=== PATIENT | female | born 1985 | race Caucasian/White ===

== ENCOUNTER 2022-09-27 19:17 | Outpatient (CLI) | payer OTHER, SELFPAY ==
[2022-09-30 03:23] LABS: DHEAS 90 ug/dL (61-337)
[2022-10-02 16:44] LABS: Sex Hormone Binding Globulin 60 nmol/L (25-122); Testosterone, LC-MS/MS 9 ng/dL (9-55)
== END 2022-09-27 19:18 | disposition home or self-care (01) ==
PROVIDERS: Visit Provider Physician Assistant
DX: Z01.419 Encounter for gynecological examination (general) (routine) without abnormal findings (principal); L68.0 Hirsutism
CPT/HCPCS: 82627; 84270; 84402; 84403; 84443; 87086

== ENCOUNTER 2022-10-20 09:28 | Outpatient (CLI) | payer OTHER, SELFPAY ==
[2022-10-20 14:01] LABS: Albumin* 4.7 g/dL (3.3-5.0)
[2022-10-20 14:02] LABS: Chloride* 104 mmol/L (96-114); Potassium* 4.8 mmol/L (3.6-5.1); Sodium* 139 mmol/L (135-149)
[2022-10-20 14:04] LABS: Aspartate Amino Transferase* 27 U/L (12-35); Bilirubin Total* 0.4 mg/dL (0.1-1.5); Carbon Dioxide* 26 mmol/L (20-32); Creatinine* 0.6 mg/dL (0.5-1.5); Estimated Glomerular Filt Rate 118 ml/min
[2022-10-20 14:05] LABS: Alanine Aminotransferase* 20 U/L (4-35); Alkaline Phosphatase* 60 U/L (40-150); Blood Urea Nitrogen* 14 mg/dL (5-24); Calcium* 9.7 mg/dL (8.4-10.6); Glucose* 98 mg/dL (60-115); Lipase* 177 U/L (23-300); Total Protein* 8.3 g/dL (6.0-8.3)
== END 2022-10-20 09:29 | disposition home or self-care (01) ==
PROVIDERS: PCP Nurse Practitioner Family; Visit Provider Nurse Practitioner Family
DX: R10.9 Unspecified abdominal pain (principal)
CPT/HCPCS: 80053; 83690

== ENCOUNTER 2024-05-15 13:42 | Outpatient (CLI) | payer OTHER, SELFPAY | END 2024-05-15 13:43 | disposition home or self-care (01) | PROVIDERS: PCP Nurse Practitioner Family; Visit Provider Registered Nurse | DX: Z01.419 Encounter for gynecological examination (general) (routine) without abnormal findings (principal); R53.83 Other fatigue | CPT/HCPCS: 82306; 84443 ==

== ENCOUNTER 2024-07-29 07:44 | Outpatient (CLI) | payer OTHER, SELFPAY ==
--- NOTE | 2024-07-29 07:45 | CRLHL7_ITS ---
For Patients: As a result of the Century Cures Act, medical imaging exams and procedure reports are released immediately into your electronic medical record. You may view this report before your referring provider. If you have questions, please contact your health care provider. BILATERAL SCREENING MAMMOGRAM WITH COMPUTER-AIDED DETECTION AND TOMOSYNTHESIS TECHNIQUE: CC and MLO views were obtained. These mammographic images have been obtained using full-field digital technique. These mammographic images were interpreted with the benefit of computer-aided detection. Breast Tomosynthesis was used in this interpretation. COMPARISON FILM: Baseline. FINDINGS: The breasts are extremely dense, which lowers the sensitivity of mammography IMPRESSION: There is no radiographic evidence for malignancy. ASSESSMENT: BI-RADS Category 1: Negative RECOMMENDATION: Routine screening mammogram in 1 year. A lay language report of this examination will be provided to the patient. uAsten Holman M.D. Diagnostic Radiologist [email or web address] ELMO/[email or web address] / bM/Dictated by: Austen Holman MD @ 08/02/2024 10:19:00 AM (Electronically Signed)
== END 2024-07-29 07:45 | disposition home or self-care (01) ==
LOC: MAMMO 07:46
PROVIDERS: PCP Nurse Practitioner Family; Visit Provider Registered Nurse
DX: Z12.31 Encounter for screening mammogram for malignant neoplasm of breast (principal); R92.333 Mammographic heterogeneous density, bilateral breasts
CPT/HCPCS: 77063; 77067

== ENCOUNTER 2025-06-03 18:15 | Outpatient (CLI) | payer OTHER, SELFPAY ==
[2025-06-03 23:04] LABS: Chlamydia DNA Amplified* NOT DETECTED (No Detected); GC DNA Amplified* NOT DETECTED (No Detected)
== END 2025-06-03 18:16 | disposition home or self-care (01) ==
PROVIDERS: PCP Nurse Practitioner Family; Visit Provider Registered Nurse
DX: Z11.3 Encounter for screening for infections with a predominantly sexual mode of transmission (principal)
CPT/HCPCS: 81513; 87481; 87491; 87591; 87661

== ENCOUNTER 2025-08-11 13:33 | Outpatient (CLI) | payer OTHER, SELFPAY ==
--- NOTE | 2025-08-11 13:20 | CRLHL7_ITS ---
For Patients: As a result of the Cures Act, medical imaging exams and procedure reports are released immediately into your electronic medical record. You may view this report before your referring provider. If you have questions, please contact your health care provider. INDICATION: BILATERAL SCREENING MAMMOGRAM, ASYMPTOMATIC 40 Y/O FEMALE COMPARISON: 07/29/2024 TECHNIQUE: Digital mammogram in CC and MLO projections including computer-aided detection (CAD) and tomosynthesis. BREAST COMPOSITION: The breasts are heterogeneously dense, which may obscure small masses. FINDINGS: No suspicious findings. ASSESSMENT: BI-RADS 1 Negative RECOMMENDATION: Annual screening mammogram. A lay language report of this examination will be provided to the patient. Dictated by: Elizabeth Dillon MD @ 08/12/2025 09:29:23 (Electronically Signed)
== END 2025-08-11 13:34 | disposition home or self-care (01) ==
LOC: MAMMO 13:34
PROVIDERS: Visit Provider Registered Nurse
DX: Z12.31 Encounter for screening mammogram for malignant neoplasm of breast (principal); R92.333 Mammographic heterogeneous density, bilateral breasts
CPT/HCPCS: 77063; 77067